=== PATIENT | male | born 1990 | race African-American/Black ===

== ENCOUNTER 2017-06-04 16:54 | Emergency (ER) | payer OTHER | END 2017-06-04 18:12 | disposition home or self-care (01) | LOC: M ED 16:54 | DX: M62.838 Other muscle spasm (principal) | CPT/HCPCS: 99282 ==

== ENCOUNTER 2018-06-13 10:25 | Emergency (ER) | payer OTHER ==
[~2018-06-13] VITALS: Ht 167.6 cm; Wt 77.5 kg
[~2018-06-13 10:25] MED LIST: IBUP-1022 PO; ROBA500T PO
[2018-06-13 11:22] LABS: INFLUENZA A AMPLIFICATION NEGATIVE (NEGATIVE); INFLUENZA B AMPLIFICATION NEGATIVE (NEGATIVE)
[2018-06-13] MEDS ORDERED: [UNRECOGNIZED DRUG - CODE] PO (12:29)
[2018-06-13] MEDS ORDERED: MUCI1TAB18 PO (12:30)
[2018-06-13] MEDS ORDERED: NETI1KIT (12:30)
[2018-06-13] MEDS ORDERED: FLON1SPR NARES (12:30)
[2018-06-13 12:35] VITALS: BP 117/84
== END 2018-06-13 12:36 | disposition home or self-care (01) ==
LOC: M ED 10:25
DX: J06.9 Acute upper respiratory infection, unspecified (principal); B34.9 Viral infection, unspecified